=== PATIENT | male | born 1960 | race Caucasian/White ===

== ENCOUNTER 2022-04-27 07:39 | Day surgery (SDC) | payer BC ==
[~2022-04-27 07:39] MED LIST: Bupivacaine 0.5% 50 ML MDV ONE; Bupivacaine 0.5%/EPINEPHrine 1:200,000 50 ML MDV ONE; Lidocaine 1% with EPINEPHrine 1:100,000 50 ML MDV ONE
[2022-04-27] MEDS ORDERED: ceFAZolin 2 GM in Premix Bag 1 BAG IV ONE (08:00)
[2022-04-27] MEDS ORDERED: Acetaminophen 500 MG Tab PO ONE (08:00)
[2022-04-27] MEDS: Lactated Ringers 1,000 ML IV SCH ×2 (08:03→08:09)
[2022-04-27] MEDS ORDERED: fentaNYL 250 MCG/5 ML SDV ONE (08:49)
[2022-04-27] MEDS ORDERED: Rocuronium 50 MG/5 ML Vial ONE (08:50)
[2022-04-27] MEDS ORDERED: Dexamethasone 4 MG/ML SDV ONE (08:50)
[2022-04-27] MEDS ORDERED: Glycopyrrolate 0.2 MG/ML 5 ML MDV ONE (08:50)
[2022-04-27] MEDS ORDERED: Neostigmine Methylsulfate 1 MG/ML 5 ML Syringe ONE (08:50)
[2022-04-27] MEDS ORDERED: Succinylcholine 200 MG/10 ML MDV ONE (08:50)
[2022-04-27] MEDS ORDERED: Propofol 200 MG/20 ML SDV ONE (08:50)
[2022-04-27] MEDS ORDERED: Ondansetron 4 MG/2 ML SDV ONE (08:50)
[2022-04-27 10:01] LABS: ESTIMATED GFR 63 mL/min (>60)
[2022-04-27] MEDS ORDERED: Lactated Ringers 1,000 ML ONE (11:25)
[2022-04-27] MEDS ORDERED: ePHEDrine 50 MG/ML SDV ONE (11:27)
[2022-04-27] MEDS ORDERED: fentaNYL 100 MCG/2 ML SDV ONE ×2 (11:57→12:18)
[2022-04-27] MEDS ORDERED: Acetaminophen/HYDROcodone 325-5 MG Tab PO PRN (13:57)
[2022-04-27] MEDS ORDERED: Ondansetron 4 MG/2 ML SDV IVPUSH PRN (13:59)
== END 2022-04-27 15:27 | disposition home or self-care (01) ==
LOC: JP.SDS 07:39
PROVIDERS: ATTEND Student in an Organized Health Care Education/Training Program
DX: K40.90 Unilateral inguinal hernia, without obstruction or gangrene, not specified as recurrent (principal); N43.3 Hydrocele, unspecified; G47.30 Sleep apnea, unspecified; Z79.899 Other long term (current) drug therapy; Z87.442 Personal history of urinary calculi
CPT/HCPCS: 36415; 49505; 55040; 80053; 85027; 85610; 88302; A9270; C1781; J0330; J0690; J1100; J2405; J2704; J2710; J3010; J3490; J7120